=== PATIENT | male | born 1960 | race Caucasian/White ===

== ENCOUNTER 2024-06-16 16:17 | Inpatient (IN) | payer MEDICARE, MEDICAID ==
[~2024-06-16] VITALS: Ht 190.5 cm; Wt 122.5 kg
[2024-06-16] MEDS ORDERED: THIA100T80 PO (20:58)
[2024-06-16] MEDS ORDERED: MULT-1366 PO (20:58)
[2024-06-16] MEDS ORDERED: HYDR25TA84 PO (20:58)
[2024-06-16] MEDS ORDERED: METH-659 PO (20:58)
[2024-06-16] MEDS ORDERED: CHLO50TA61 PO (20:58)
[2024-06-16] MEDS ORDERED: FURO40TA6 PO (20:58)
[2024-06-16] MEDS ORDERED: MELA3TAB89 PO (20:58)
[2024-06-16] MEDS ORDERED: CARB50DR OU (20:58)
[2024-06-16] MEDS ORDERED: METO25 PO (20:58)
[2024-06-16] MEDS ORDERED: TRAZ-257 PO (20:58)
[2024-06-16 21:18] LABS: BASOPHILS % (AUTO) 0.8 % (0.0-2.0); EOSINOPHILS % (AUTO) 2.5 % (1.0-6.0); HEMATOCRIT 42.9 % (41-53); LYMPHOCYTES # (AUTO) 1.7 K/uL (1.0-4.8); LYMPHOCYTES % (AUTO) 24.9 % (22.0-44.0); MEAN CORPUSCULAR HEMOGLOBIN 29.9 pg (26.0-34.0); MEAN CORPUSCULAR HGB CONC 32.5 G/dL (31.0-37.0); MEAN CORPUSCULAR VOLUME 92 fL (80-100); MONOCYTES # (AUTO) 0.6 K/uL (0.1-1.0); MONOCYTES % (AUTO) 9.2 % (2.0-9.0); NEUTROPHILS # (AUTO) 4.3 K/uL (1.8-7.7); NEUTROPHILS % (AUTO) 62.6 % (40.0-70.0); PLATELET COUNT (AUTO) 274 K/uL (150-450); RED BLOOD CELL COUNT(AUTO) 4.67 MIL/uL (4.50-5.90); RED CELL DISTRIBUTION WIDTH 13.7 % (11.5-14.5); WHITE BLOOD COUNT (AUTO) 6.8 K/uL (4.5-11.0)
[2024-06-16 21:29] LABS: ANION GAP 8 mmol/L (8-16); CALCIUM, TOTAL 8.8 mg/dL (8.8-10.5); CARBON DIOXIDE 32 mmol/L (22-29); CHLORIDE 100 mmol/L (98-107); CREATININE 0.78 mg/dL (0.60-1.30); GLOMERULAR FILTR. RATE CALC > 60 mL/min (>60); GLUCOSE,RANDOM 116 mg/dL (70-110); POTASSIUM 3.9 mmol/L (3.5-5.1); SODIUM SERUM 139 mmol/L (136-145); UREA NITROGEN, BLOOD 14 mg/dL (7-18)
[2024-06-16 21:41] LABS: ALCOHOL, BLOOD (SERUM) < 3 mg/dL (0-10)
[2024-06-16 21:42] VITALS: O2SAT 95
[2024-06-16 21:42] LABS: COVID AG,FIA SOURCE NASAL SWAB
[2024-06-16 22:00] LABS: SARS-COV2 (COVID) ANTIGEN,FIA Negative (Negative)
[2024-06-17 03:18] VITALS: BP 147/81; PULSE 83; RESP 18; TEMP 97; O2SAT 98
[2024-06-17] MEDS ORDERED: INFLUENZA VIRUS VACCINE TVS (6MO+) 2024-25/PF 45 MCG/0.5 ML SYRINGE IM. ONE (05:00)
[2024-06-17] MEDS ORDERED: PNEUMOCOCCAL VACCINE POLYVALENT 0.5 ML SYRINGE [PPSV23] IM. ONE (05:00)
[2024-06-17] MEDS ORDERED: CloNIDine HCL 0.1 MG TABLET PO PRN (06:45)
[2024-06-17] MEDS ORDERED: BACITRACIN 28 GM OINTMENT TP PRN (06:45)
[2024-06-17] MEDS ORDERED: ALBUTEROL SULFATE HFA 90 MCG/PUFF 8 GM INHALER IH PRN (06:45)
[2024-06-17] MEDS ORDERED: LOPERAMIDE HCL 2 MG CAPSULE PO PRN (06:45)
[2024-06-17] MEDS ORDERED: MAG HYDROX/ALUMINUM HYD/SIMETH ES 30 ML SUSPENSION UDCUP PO PRN (06:45)
[2024-06-17] MEDS ORDERED: BENZOCAINE/MENTHOL LOZENGE PO PRN (06:45)
[2024-06-17] MEDS ORDERED: ONDANSETRON 4 MG TABLET PO PRN (06:45)
[2024-06-17] MEDS ORDERED: PETROLATUM,WHITE 28 GM JELLY TP PRN (06:45)
[2024-06-17] MEDS: CARBOXYMETHYLCELLULOSE SODIUM 0.4 ML OPHTHALMIC SOLUTION [PF] OU SCH (08:00)
[2024-06-17 08:14] VITALS: RESP 18
[2024-06-17] MEDS: TERBINAFINE HCL 1% 30 GM CREAM TP SCH (09:00)
[2024-06-17] MEDS: MULTIVITAMINS, THERAPEUTIC TABLET PO SCH (09:00)
[2024-06-17] MEDS: FUROSEMIDE 40 MG TABLET PO SCH (09:00)
[2024-06-17] MEDS: THIAMINE 100 MG TABLET PO SCH (09:00)
[2024-06-17] MEDS: DOXYCYCLINE HYCLATE 100 MG TABLET PO SCH (09:00)
[2024-06-17] MEDS: MAGNESIUM SULFATE 454 GM BAG TP SCH (09:00)
[2024-06-17] MEDS: METHOCARBAMOL 500 MG TABLET PO SCH (09:00)
[2024-06-17] MEDS: METOPROLOL TARTRATE 25 MG TABLET PO SCH (10:00)
[2024-06-17] MEDS: HydrALAZINE HCL 25 MG TABLET PO SCH (10:00)
[2024-06-17] MEDS: ACETAMINOPHEN 325 MG TABLET PO PRN (17:07)
[2024-06-17 20:50] VITALS: BP 129/71; PULSE 74; RESP 18; TEMP 97.3; O2SAT 97
[2024-06-17] MEDS: TraZODone HCL 100 MG TABLET PO SCH (20:50)
[2024-06-17] MEDS: OLANZapine 5 MG TABLET PO SCH (20:50)
[2024-06-18 07:39] VITALS: BP 143/88; PULSE 87; RESP 18; TEMP 97.6
[2024-06-18] MEDS: IBUPROFEN 600 MG TABLET PO PRN (07:39)
[2024-06-18] MEDS: QUEtiapine FUMARATE 100 MG TABLET PO PRN (07:39)
[2024-06-18] MEDS: LORazepam 2 MG TABLET PO PRN (07:39)
[2024-06-18] MEDS: OMEPRAZOLE 20 MG CAPSULE PO PRN (07:41)
[2024-06-18 08:30] VITALS: BP 143/88; PULSE 87; RESP 20; TEMP 97.4; O2SAT 97
[2024-06-18 08:39] VITALS: BP 138/81; PULSE 81; RESP 17; TEMP 98
[2024-06-18] MEDS: LITHIUM CARBONATE 300 MG CAPSULE PO SCH (16:33)
[2024-06-18 20:17] VITALS: BP 135/70; PULSE 82; RESP 18; TEMP 97; O2SAT 18
[2024-06-18] MEDS: ZOLPIDEM TARTRATE 10 MG TABLET PO PRN (21:06)
[2024-06-18] MEDS: OLANZapine 10 MG TABLET PO SCH (21:06)
[2024-06-19 09:32] VITALS: BP 156/100; PULSE 94; RESP 19; TEMP 98.2; O2SAT 95
[2024-06-19] MEDS: DOCUSATE SODIUM 100 MG CAPSULE PO PRN (10:59)
[2024-06-19] MEDS: MAGNESIUM HYDROXIDE SUSPENSION 30 ML UDCUP PO PRN (10:59)
[2024-06-19 20:50] VITALS: BP 142/96; PULSE 91; RESP 18; TEMP 97.9; O2SAT 97
[2024-06-20 10:09] VITALS: BP 127/85; PULSE 76; RESP 18; TEMP 98.2; O2SAT 96
[2024-06-20 21:21] VITALS: RESP 18
[2024-06-21 13:22] VITALS: BP 160/87; PULSE 96; RESP 18; TEMP 98.4; O2SAT 96
[2024-06-21 20:29] VITALS: RESP 18
[2024-06-21 20:59] VITALS: BP 139/83; PULSE 92; RESP 18; TEMP 97.9
[2024-06-21] MEDS: SENNOSIDES 8.6 MG TABLET PO SCH (20:59)
[2024-06-22 09:43] VITALS: BP 149/101; PULSE 86; RESP 18; TEMP 98.3; O2SAT 93
[2024-06-22] MEDS: POLYETHYLENE GLYCOL 3350 17 GM PACKET PO SCH (12:21)
[2024-06-22] MEDS: LACTULOSE 20 GM/30 ML SOLUTION UDCUP PO SCH (12:22)
[2024-06-22 16:05] VITALS: BP 116/65; PULSE 91; RESP 18
[2024-06-22 20:12] VITALS: RESP 18
[2024-06-22 21:10] VITALS: BP 138/77; PULSE 85; RESP 18; TEMP 98.7; O2SAT 98
[2024-06-22 22:13] VITALS: RESP 18
[2024-06-22 23:47] VITALS: BP 133/82; PULSE 83; RESP 18
[2024-06-23 08:29] VITALS: BP 147/92; PULSE 96; RESP 19; TEMP 97.8; O2SAT 95
[2024-06-23 16:51] VITALS: BP 127/69; PULSE 72; RESP 18
[2024-06-23 20:35] VITALS: BP 137/71; PULSE 88; RESP 18; TEMP 98.8; O2SAT 95
[2024-06-24 08:57] VITALS: PULSE 93; RESP 20; TEMP 98.3; O2SAT 98
[2024-06-24 20:45] VITALS: BP 139/79; PULSE 89; RESP 18; TEMP 98.4; O2SAT 97
[2024-06-24] MEDS ORDERED: OLANZapine 7.5 MG TABLET PO SCH (21:00)
[2024-06-24] MEDS: ChlorproMAZINE HCL 100 MG TABLET PO SCH (21:31)
[2024-06-25] MEDS: BuPROPion HCL 75 MG TABLET PO SCH (10:13)
[2024-06-25 10:47] VITALS: BP 131/84; PULSE 91; RESP 18; TEMP 98.4; O2SAT 96
[2024-06-25 10:59] VITALS: BP 131/80; PULSE 90; RESP 18; TEMP 98.3; O2SAT 97
[2024-06-25 11:59] VITALS: BP 135/81; PULSE 93; RESP 18; TEMP 98.4; O2SAT 98
[2024-06-25 21:40] VITALS: BP 143/82; PULSE 77; RESP 18; TEMP 98
[2024-06-25] MEDS: MELATONIN 3 MG TABLET PO PRN (21:42)
[2024-06-25 22:40] VITALS: RESP 18
[2024-06-25 23:29] VITALS: BP 140/76; PULSE 75; RESP 18; TEMP 98; O2SAT 98
[2024-06-26 08:56] VITALS: BP_SYST 135; BP_SYST 139; BP_DIAS 70; BP_DIAS 91; PULSE 97; RESP 19; TEMP 98.1; O2SAT 97
[2024-06-26 17:03] VITALS: BP 132/78; PULSE 78; RESP 18
[2024-06-26 17:10] VITALS: BP 135/78; PULSE 82; RESP 20
[2024-06-26 21:08] VITALS: RESP 18
[2024-06-26 23:45] VITALS: BP 120/75; PULSE 77; RESP 18; TEMP 98.2
[2024-06-27 09:17] VITALS: BP 136/89; PULSE 89; RESP 18; TEMP 97.6; O2SAT 98
[2024-06-27 15:10] VITALS: BP 109/73; PULSE 83; RESP 18; TEMP 97.6
[2024-06-27 16:10] VITALS: BP 130/79; PULSE 83; RESP 18; TEMP 97.8
[2024-06-27 21:13] VITALS: BP 127/73; PULSE 78; RESP 18; TEMP 97.6
[2024-06-27 23:30] VITALS: BP 108/67; PULSE 72; RESP 18; TEMP 97.8
[2024-06-28 12:38] VITALS: BP 132/78; PULSE 90; RESP 18; TEMP 98.2; O2SAT 98
[2024-06-28] MEDS: GABAPENTIN 300 MG CAPSULE PO SCH (17:00)
[2024-06-28 20:10] VITALS: BP 132/72; PULSE 76; RESP 18; TEMP 98; O2SAT 99
[2024-06-28] MEDS: ChlorproMAZINE HCL 100 MG TABLET PO SCH (21:13)
[2024-06-28 23:30] VITALS: BP 128/70; PULSE 79; RESP 17; TEMP 97.3; O2SAT 97
[2024-06-29 08:51] VITALS: BP 126/74; PULSE 80; RESP 16; TEMP 98; O2SAT 98
[2024-06-29 21:01] VITALS: RESP 18
[2024-06-30 09:13] VITALS: BP 141/82; PULSE 84; RESP 18; TEMP 97.8; O2SAT 97
[2024-06-30] MEDS: ChlorproMAZINE HCL 100 MG TABLET PO SCH (20:56)
[2024-06-30 21:34] VITALS: BP 153/88; PULSE 89; RESP 18; TEMP 98.2; O2SAT 96
[2024-07-01 09:01] VITALS: BP 131/81; PULSE 83; RESP 18; TEMP 98.1; O2SAT 95
[2024-07-01] MEDS: ChlorproMAZINE HCL 50 MG TABLET PO SCH (09:09)
[2024-07-01 16:43] VITALS: BP 131/85; PULSE 87; RESP 20; O2SAT 97
[2024-07-01 20:24] VITALS: BP 115/72; PULSE 75; RESP 17; TEMP 98.8; O2SAT 95
[2024-07-02 09:42] VITALS: BP 141/64; PULSE 92; RESP 18; TEMP 98.2; O2SAT 96
[2024-07-02 17:03] VITALS: BP 138/75; PULSE 97; RESP 20; O2SAT 98
[2024-07-02 21:00] VITALS: RESP 18
[2024-07-03 09:16] VITALS: BP 135/85; PULSE 98; RESP 20; TEMP 97.6; O2SAT 97
[2024-07-03 16:58] VITALS: BP 139/92; PULSE 97; RESP 18; O2SAT 97
[2024-07-03 20:29] VITALS: BP 128/76; PULSE 96; RESP 18; TEMP 97.3; O2SAT 97
[2024-07-04 09:04] VITALS: BP 148/88; PULSE 110; RESP 18; TEMP 98; O2SAT 100
[2024-07-04 20:17] VITALS: BP 107/61; PULSE 83; RESP 18; TEMP 97.3; O2SAT 97
[2024-07-05 08:40] VITALS: BP 130/78; PULSE 81; RESP 18; TEMP 98.2; O2SAT 96
[2024-07-05 20:37] VITALS: BP 96/56; PULSE 72; RESP 18; TEMP 96.6; O2SAT 97
[2024-07-05] MEDS: ChlorproMAZINE HCL 100 MG TABLET PO SCH (21:19)
[2024-07-06] MEDS: ChlorproMAZINE HCL 100 MG TABLET PO SCH (08:30)
[2024-07-06 09:46] VITALS: BP 139/68; PULSE 87; RESP 16; TEMP 99; O2SAT 96
[2024-07-06 16:22] VITALS: BP 103/64; PULSE 81; RESP 17; O2SAT 97
[2024-07-06 20:08] VITALS: BP 122/79; PULSE 85; RESP 19; TEMP 98.1; O2SAT 97
[2024-07-06] MEDS: ChlorproMAZINE HCL 50 MG TABLET PO SCH (21:29)
[2024-07-07 08:25] VITALS: BP 126/80; PULSE 83; RESP 18; TEMP 98.3; O2SAT 98
[2024-07-07 16:59] VITALS: BP 131/77; PULSE 79; RESP 18; TEMP 98.8; O2SAT 98
[2024-07-07 20:00] VITALS: BP 112/77; PULSE 80; RESP 18; TEMP 97.6; O2SAT 98
[2024-07-08 08:40] VITALS: RESP 18
[2024-07-08 09:17] VITALS: BP 138/85; PULSE 78; RESP 20; TEMP 98.2; O2SAT 98
[2024-07-08 17:03] VITALS: BP 112/72; PULSE 67; RESP 18; O2SAT 97
[2024-07-08 23:50] VITALS: BP 127/88; PULSE 78; RESP 16; TEMP 98; O2SAT 100
[2024-07-09 09:01] VITALS: BP 130/84; PULSE 76; RESP 17; TEMP 98.3; O2SAT 99
[2024-07-09 14:27] VITALS: BP 128/89; PULSE 78; RESP 18; TEMP 98; O2SAT 98
[2024-07-09 15:27] VITALS: BP 128/89; PULSE 76; RESP 18; TEMP 98.2; O2SAT 98
[2024-07-09 20:52] VITALS: BP 106/70; PULSE 82; RESP 18; TEMP 98; O2SAT 97
[2024-07-10 09:02] VITALS: BP 134/72; PULSE 80; RESP 18; TEMP 97.7; O2SAT 98
[2024-07-10 16:56] VITALS: BP 138/80; PULSE 76; RESP 17; TEMP 98.4; O2SAT 97
[2024-07-10 18:00] VITALS: RESP 16
[2024-07-10 21:11] VITALS: BP 108/74; PULSE 72; RESP 18; TEMP 97.3
[2024-07-10 22:11] VITALS: RESP 18
[2024-07-11 08:30] VITALS: BP 115/72; PULSE 74; RESP 16; TEMP 98.2; O2SAT 98
[2024-07-11] MEDS ORDERED: INSULIN LISPRO 100 UNITS/ML SQ PRN (10:00)
[2024-07-11] MEDS ORDERED: DEXTROSE 50%-WATER 25 GM/50 ML SYRINGE IVP PRN (10:00)
[2024-07-11 12:56] LABS: GLUCOMETER DEV NAME(LOC) 3E.C; GLUCOSE,POINT OF CARE 122 MG/DL (70-110)
[2024-07-11 19:31] LABS: GLUCOMETER DEV NAME(LOC) 3E.C; GLUCOSE,POINT OF CARE 115 MG/DL (70-110)
[2024-07-11 20:43] VITALS: BP 100/67; PULSE 68; RESP 16; TEMP 97.3; O2SAT 98
[2024-07-12 09:52] VITALS: RESP 18
[2024-07-12 20:42] VITALS: BP 118/71; PULSE 66; RESP 18; TEMP 98.5; O2SAT 96
[2024-07-13 10:19] VITALS: BP 94/59; PULSE 81; RESP 18; TEMP 97.5; O2SAT 96
[2024-07-13 10:28] VITALS: BP 98/63; PULSE 83; RESP 18; TEMP 97.3; O2SAT 97
[2024-07-13] MEDS ORDERED: BUPR-344 PO (15:29)
[2024-07-13] MEDS ORDERED: CHLO100T42 PO (15:30)
[2024-07-13] MEDS ORDERED: GABA-1181 PO (15:31)
[2024-07-13] MEDS ORDERED: LACT10SO85 PO (15:31)
[2024-07-13] MEDS ORDERED: SENN-376 PO (15:32)
[2024-07-13] MEDS ORDERED: POLY17PO62 PO (15:32)
[2024-07-13] MEDS ORDERED: TERB30CR8 TP (15:33)
[2024-07-13 17:30] VITALS: BP 109/72; PULSE 85; RESP 18; TEMP 96.8; O2SAT 96
== END 2024-07-13 17:45 | DRG 885 ==
LOC: EMS 16:17 → 3EC 23:58
PROVIDERS: ADMIT Psychiatry & Neurology Psychiatry; ATTEND Psychiatry & Neurology Psychiatry
DX: F25.9 Schizoaffective disorder, unspecified (principal); K59.00 Constipation, unspecified; F41.9 Anxiety disorder, unspecified; G47.00 Insomnia, unspecified; Z20.822 Contact with and (suspected) exposure to COVID-19; I10 Essential (primary) hypertension; E66.9 Obesity, unspecified; F32.A Depression, unspecified; Z68.33 Body mass index [BMI] 33.0-33.9, adult; S91.301A Unspecified open wound, right foot, initial encounter
CPT/HCPCS: 80048; 80178; 82962; 83036; 85025; 87081; 99285; G0480